=== PATIENT | male | born 1935 | race Caucasian/White ===

== ENCOUNTER → 2016-07-08 | Outpatient (CLI) | payer OTHER, MEDICARE ==
[~2016-07-08] MED LIST: ASPI81TA2 PO; CALC-494 PO; CLOP75TA PO; GADOBUTROL 10mMol/10ml INJECTION IV ONE; LAMO150T42 PO; LEVO50TA51 PO; NITR0.4T SL; OLME1TAB18 PO; OLME1TAB8 PO; PRAM1TAB3 PO; PRAV40TA44 PO; SALINE FLUSH 10ml SYRINGE ONE; VENL-69 PO
--- NOTE | 2016-07-09 08:50 | DI ---
Indication: ITS.REASON: L97.519 NON HEALING ULCER; BONE PAIN PROCEDURE: MRI ANKLE RIGHT W/WO CONTRAST: Encounter: Initial Comparison: None Technique: Multiplanar multisequence MR imaging of the right ankle was performed with and without contrast. Contrast: 10 mL Gadavist Findings: There is diffuse subcutaneous edema present within the soft tissues of the ankle. The ankle flexor and extensor tendons appear grossly normal as does the Achilles. No acute fracture seen. Possible tearing of the anterior talofibular ligament. Exam degraded by motion artifact. There is evidence of a nondisplaced fracture of the lateral malleolus best seen on the coronal plane images. This is apparently healed could be old. The area of patient's skin ulcer or wound was marked with a marker adjacent to the distal aspect of the fibula. There are no bony changes within the fibula to suggest osteomyelitis. No areas of abnormal bone enhancement on the postcontrast images. No rim-enhancing fluid collection or abscess. Impression: Limited exam due to severe motion artifact. No gross MR evidence of osteomyelitis. .
== END ==
LOC: IMA 15:33
PROVIDERS: ATTEND Family Medicine
DX: L97.519 Non-pressure chronic ulcer of other part of right foot with unspecified severity (principal)
CPT/HCPCS: 73723; A9585